=== PATIENT | male | born 1970 | race Caucasian/White ===

== ENCOUNTER → 2016-12-31 | Outpatient (CLI) | payer OTHER ==
--- NOTE | 2017-01-03 11:50 | SLEEPCENT ---
DATE OF PROCEDURE: 12/31/2016 ORDERED BY: Chio Nweman. Nocturnal polysomnography was performed for evaluation of sleep apnea syndrome symptoms in this patient with a history of excessive sombolence. 8 hours and 42 minutes of data were reviewed. There were 464 minutes of sleep identified. Sleep latency was mildly prolonged at 21 minutes Rapid eye movement (REM) latency was normal at 85 minutes. Sleep architecture was fairly well preserved. There were 3 REM periods identified. Overall sleep efficiency was 89.9%. The patient's EKG showed a sinus rhythm with an average heart rate of 67 beats per minute. EEG showed reasonably normal wave forms for awake and sleep stages. There were 23 respiratory events identified of 10 seconds in duration or greater for an apnea-hypopnea index within normal limits at 3. The events that were seen were nearly exclusive to supine posture. Arousals from respiratory events occurred 7.1 times per hour when arousals from snoring were included. There was also significant limb activity identified, three to four trains of 30 events. Overall limb movement arousal index was 7.4. IMPRESSION: 1. Periodic limb movement disorder (G47.61). Limb movement arousal index 7.4. 2. Snoring, snore related arousals 7.1 times per hour. RECOMMENDATION: Sleep position retraining for avoidance of the supine posture may assist with the snore related arousals. Interventions to reduce the frequency of arousals from limb activity may also improve the quality of the patient's sleep.
== END ==
LOC: M SLEEP 19:30
PROVIDERS: ATTEND Nurse Practitioner Adult Health
DX: G47.61 Periodic limb movement disorder (principal); R06.83 Snoring

== ENCOUNTER → 2022-04-13 | Outpatient (REF) | payer OTHER ==
[2022-04-13 19:21] LABS: ALBUMIN 3.9 GM/DL (3.2-5.2); ALT/SGPT 53 U/L (12-78); BILIRUBIN,TOTAL 0.3 MG/DL (0.2-1.0); BLOOD UREA NITROGEN 16 MG/DL (7-18); CALCIUM LEVEL 9.1 MG/DL (8.5-10.1); CARBON DIOXIDE LEVEL 28 MEQ/L (21-32); CHLORIDE LEVEL 105 MEQ/L (98-107); CHOLESTEROL LEVEL 182 MG/DL (<200); CHOLESTEROL RISK RATIO 2.563 (<5); CREATININE FOR GFR 1.15 MG/DL (0.70-1.30); GLOMERULAR FILTRATION RATE > 60.0 (>56); GLUCOSE, FASTING 82 MG/DL (70-100); HDL CHOLESTEROL 71 MG/DL (>40); LDL CHOLESTEROL 79 MG/DL (<100); NON-HDL-C 111 MG/DL; POTASSIUM SERUM 4.1 MEQ/L (3.5-5.1); SODIUM LEVEL 140 MEQ/L (136-145); TOTAL PROTEIN 7.1 GM/DL (6.4-8.2); TRIGLYCERIDES LEVEL 160 MG/DL (<150)
== END ==
LOC: M SFHCCLAY 14:23
PROVIDERS: ATTEND Family Medicine
DX: Z13.220 Encounter for screening for lipoid disorders (principal)

== ENCOUNTER → 2025-02-04 | Outpatient (CLI) | payer OTHER | LOC: M CLY 15:29 | PROVIDERS: ATTEND Family Medicine | DX: R07.81 Pleurodynia (principal) ==